=== PATIENT | male | born 1960 | race Two or more races ===

== ENCOUNTER 2022-06-18 19:36 | Inpatient (IN) | payer OTHER ==
[~2022-06-18] VITALS: Ht 152.4 cm; Wt 63.5 kg
--- NOTE | 2022-06-18 20:13 | NUR ---
[facility]sey FROM [facility] FOR [facility]. LAST WELL KNOWN 1699. PATIENT ON MONITOR AND POX, IN BED 11 WITH SITTER AT BEDSIDE AWAITING MD WOOD.
--- NOTE | 2022-06-18 20:24 | NUR ---
BLOOD AND CULTURES COLLECTED AND SENT TO LAB
--- NOTE | 2022-06-18 20:24 | NUR ---
PATIENT GOING TO CT
[2022-06-18 20:35] LABS: BASOPHILS % (AUTO) 0.1 % (0.0-2.0); EOSINOPHILS % (AUTO) 0.1 % (0.0-6.0); HEMATOCRIT 34 % (39-51); HEMOGLOBIN 11.8 g/dL (13.5-17.5); LYMPHOCYTES # (AUTO) 1.1 K/uL (0.8-4.8); LYMPHOCYTES % (AUTO) 7.7 % (20.0-44.0); MEAN CORPUSCULAR HGB CONC 34 g/dl (31.0-36.0); MEAN CORPUSCULAR VOLUME 89 fL (80-96); MONOCYTES # (AUTO) 0.6 K/uL (0.1-1.30); MONOCYTES % (AUTO) 4.2 % (2.0-12.0); NEUTROPHILS # (AUTO) 12.5 K/uL (1.8-8.9); NEUTROPHILS % (AUTO) 87.9 % (43.0-81.0); PLATELET COUNT (AUTO) 329 K/uL (150-450); RED BLOOD CELL COUNT(AUTO) 3.88 MIL/uL (4.5-6.0); WHITE BLOOD COUNT (AUTO) 14.2 K/uL (4.3-11.0)
--- NOTE | 2022-06-18 20:41 | NUR ---
URINE COLLECTED AND SENT TO LAB
--- NOTE | 2022-06-18 20:43 | NUR ---
COVID SWAB COLLECTED
[2022-06-18 20:49] LABS: SERUM AMMONIA 54 umol/L (11-32)
[2022-06-18 20:54] LABS: ALANINE AMINOTRANSFERASE 43 U/L (12-78); ALBUMIN 3.7 g/dL (3.4-5.0); ALCOHOL, BLOOD < 3 mg/dL (0-0); ALKALINE PHOSPHATASE 154 U/L (46-116); ASPARTATE AMINOTRANSFERASE 58 U/L (15-37); BILIRUBIN,DIRECT 0.4 mg/dL (0.0-0.2); BILIRUBIN,TOTAL 1.2 mg/dL (0.2-1.0); CALCIUM, SERUM 8.6 mg/dL (8.5-10.1); CARBON DIOXIDE 17 mmol/L (21-32); CREATININE 1.1 mg/dL (0.6-1.3); GLUCOSE 162 mg/dL (74-106); POTASSIUM 3.9 mmol/L (3.5-5.1); TOTAL PROTEIN, SERUM 9.1 g/dL (6.4-8.2); UREA NITROGEN, BLOOD 11 mg/dL (7-18)
--- NOTE | 2022-06-18 20:55 | NUR ---
CALL FROM LAB. SODIUM 106
[2022-06-18 20:57] LABS: CHLORIDE 72 mmol/L (98-107); SODIUM SERUM 106 mmol/L (136-145)
[2022-06-18] MEDS ORDERED: LORAZEPAM INJ 2 MG/ML VIAL ONE (20:58)
[2022-06-18] MEDS ORDERED: SODIUM BICARBONATE SYR 50 MEQ/50 ML DISP.SYRIN ONE (20:58)
--- NOTE | 2022-06-18 20:59 | NUR ---
PT HAD WITNESSED SEIZURE LASTING APPROX. 1 1/2 MIN. 2 ATIVAN GIVEN. PT ON NON REBREATHER @15L O2 CONNECTED TO MONITOR. SEIZURE PRECAUTIONS IN PLACE. VITAL SIGNS: HR:108 BP: 152/91 RR: 23 O2 SAT 99% 15L
[2022-06-18] MEDS ORDERED: SODIUM BICARBONATE SYR 50 MEQ/50 ML DISP.SYRIN IV ONE (21:00)
[2022-06-18] MEDS ORDERED: IV Sodium Chloride 3% 500 ML 500 ML IV ONE ×2 (21:00→21:05)
--- NOTE | 2022-06-18 21:04 | NUR ---
ICU 261
--- NOTE | 2022-06-18 21:12 | NUR ---
3%NS 150ML INITIATED AT 450ML/HR AT 20G LH. END TIME 2131.
--- NOTE | 2022-06-18 21:22 | NUR ---
SECOND IV LINE ESTABLISHED, LHAND 20G
[2022-06-18] MEDS ORDERED: ONDANSETRON HCL/PF 4 MG/2 ML VIAL IVP PRN (21:30)
[2022-06-18] MEDS ORDERED: ACETAMINOPHEN 325 MG TABLET PO PRN (21:30)
[2022-06-18] MEDS ORDERED: LORAZEPAM INJ 2 MG/ML VIAL IV ONE (21:30)
[2022-06-18] MEDS ORDERED: Z GUARD REMEDY 4 OZ OINT TP PRN (21:30)
[2022-06-18] MEDS ORDERED: MORPHINE SULFATE INJ 2 MG/ML DISP.SYRIN IV PRN (21:30)
--- NOTE | 2022-06-18 21:33 | NUR ---
3%NS 150ML VIA IV MD KAEL MADE AWARE
[2022-06-18 21:45] LABS: BILIRUBIN,URINE NEGATIVE (NEGATIVE); COLOR,URINE YELLOW (YELLOW); LEUKOCYTE ESTERASE ,URINE NEGATIVE (NEGATIVE); NITRITE, URINE NEGATIVE (NEGATIVE); PROTEIN,URINE NEGATIVE (NEGATIVE); UGLUCOSE NEGATIVE (NEGATIVE); UROBILINOGEN,URINE 0.2 EU/dL (0.2)
--- NOTE | 2022-06-18 21:51 | NUR ---
REPORT GIVEN TO LORENA HAYES FOR JOHANNY
[2022-06-18] MEDS ORDERED: DEXTROSE 50%-WATER 50 ML DISP.SYRIN IV PRN (22:00)
[2022-06-18] MEDS ORDERED: LORAZEPAM INJ 2 MG/ML VIAL IV PRN (22:00)
[2022-06-18] MEDS ORDERED: ACET-2605 PO (22:02)
[2022-06-18] MEDS ORDERED: ENOX40DI SQ (22:02)
[2022-06-18] MEDS ORDERED: BISA-79 GT (22:02)
[2022-06-18] MEDS ORDERED: SENN1TAB6 PO (22:02)
[2022-06-18] MEDS ORDERED: OLAN5TAB3 PO (22:02)
[2022-06-18] MEDS ORDERED: THIA25PO MC (22:02)
[2022-06-18] MEDS ORDERED: DOCU-141 PO (22:02)
--- NOTE | 2022-06-18 22:03 | NUR ---
LAB AT BEDSIDE
[2022-06-18 22:16] LABS: BACTERIA,URINE Rare /HPF (None Seen); SQUAMOUS EPITHELIAL CELL,UR Few /HPF (None Seen); WBC,URINE 0-2 /HPF (0-3)
[2022-06-18] MEDS ORDERED: LEVETIRACETAM (500MG) 500 MG/5 ML VIAL IV ONE (22:17)
--- NOTE | 2022-06-18 22:28 | NUR ---
DR KRUEGER AT BEDSIDE
[2022-06-18] MEDS ORDERED: IV NS 0.9% 250 ML IV PRN (22:30)
--- NOTE | 2022-06-18 22:39 | NUR ---
RT AT BEDSIDE
--- NOTE | 2022-06-18 22:44 | NUR ---
LACTIC ACID 7.9
--- NOTE | 2022-06-18 22:48 | NUR ---
TROP 543, AWARE
[2022-06-18 22:50] LABS: ABG BASE EXCESS -4.5 mmol/L; ABG PCO2 29.2 mmHg (35.0-45.0); ABG PH 7.425 (7.350-7.450); ABG PO2 373.7 mmHg (75.0-100.0); COHb 0.3 % (0.5-1.5); MetHb 0.3 % (0.0-1.5); O2Hb 99.2 % (94.0-97.0); SITE, ABG Left Radial; VENT MODE, BG NRB 100%
[2022-06-18] MEDS ORDERED: IV NS 0.9% 1,000 ML BAG IV ONE (23:00)
[2022-06-18] MEDS: LEVETIRACETAM (500MG) 500 MG in IV NS 0.9% 100 ML IV SCH (23:29)
--- NOTE | 2022-06-18 23:30 | NUR ---
ICU/RN: RECIEVED PT. BED BATH GIVEN. LINENS CHANGED. ATTACHED TO MONITOR. NSR. PT NOTED WITH AUDIBLE WHEEZING ON 5L NC. RR 40'S. DR. SMITH NOTIFIED. NEW ORDERS RECIEVED AND CARRIED OUT. PATRICK CATH PLACE VIA STERILE PROCEDURE. 1100ML CLEAR YELLOW URINE RETURNED. PT NOTED WITH SKIN TEAR TO RIGHT HAND PICTURE TAKEN AND PLACED IN CHART. WOUND CONSULT TRIGGERED. PT NOTED WITH LEFT HAND IV #20 GAGUE AND LEFT FOREARM 20 GAUGE FLUSHED AND PATENT. SEIZURE PRECAUTIONS IMPLIMENTED. DR. SMITH NOTIFIED ABOUT CRITICAL SODIUM LEVEL 111. PER DR. SMITH CALL ALL SODIUM LEVELS TO DR. WOLFE [facility]. CONTACTING DR. WOLFE NOW. WILL CONTINUE WITH PLAN OF CARE.
[2022-06-18 23:37] VITALS: BP 106/22
[2022-06-18 23:51] VITALS: BP 106/22
[2022-06-19] VITALS (30 sets, daily range): BP systolic 80–122; BP diastolic 23–96
[2022-06-19] MEDS ORDERED: ALBUTEROL FS 2.5 MG/0.5 ML VIAL.NEB NEB PRN
[2022-06-19] MEDS ORDERED: IPRATROPIUM/ALBUTEROL INHALER IH SCH
[2022-06-19] MEDS: BLOOD SUGAR DIAGNOSTIC 1 EACH STRIP IN SCH ×5 (00:03→21:11)
[2022-06-19] MEDS: IPRATROPIUM NEB FS 0.5 MG/2.5 ML AMPUL.NEB NEB SCH ×7 (00:10→23:23)
[2022-06-19] MEDS: ALBUTEROL FS 2.5 MG/0.5 ML VIAL.NEB NEB SCH ×7 (00:30→23:23)
[2022-06-19] MEDS ORDERED: PIPERACILLIN /TAZOBACTAM 3.375 G VIAL IV ONE ×2 (00:33→06:09)
[2022-06-19] MEDS: ZOSYN IVPB 3.375 G in IV D5W 50ml IV SCH ×2 (00:34→06:11)
--- NOTE | 2022-06-19 00:50 | NUR ---
ICU/RN: PER DR. YANETH CANAS'S ANSWERING SERVICE HE IS UNAVAILABLE AND THEY WILL SEND A TEXT FOR HIM TO CALL ME BACK.
--- NOTE | 2022-06-19 01:00 | NUR ---
ICU/RN: SPOKE WITH DR. WOLFE NEW ORDERS RECIEVED AND CARRIED OUT.
[2022-06-19] MEDS: IV NS 0.9% 1,000 ML IV PRN ×2 (01:20→10:51)
[2022-06-19] MEDS ORDERED: IPRATROPIUM NEB FS 0.5 MG/2.5 ML AMPUL.NEB IH SCH (01:30)
[2022-06-19] MEDS ORDERED: ALBUTEROL FS 2.5 MG/0.5 ML VIAL.NEB NEB SCH (01:30)
[2022-06-19 04:22] LABS: BASOPHILS % (AUTO) 0.1 % (0.0-2.0); EOSINOPHILS % (AUTO) 0.2 % (0.0-6.0); HEMATOCRIT 31 % (39-51); HEMOGLOBIN 10.9 g/dL (13.5-17.5); LYMPHOCYTES % (AUTO) 18.3 % (20.0-44.0); MEAN CORPUSCULAR HGB CONC 35 g/dl (31.0-36.0); MEAN CORPUSCULAR VOLUME 89 fL (80-96); MONOCYTES % (AUTO) 8.9 % (2.0-12.0); NEUTROPHILS % (AUTO) 72.5 % (43.0-81.0); PLATELET COUNT (AUTO) 192 K/uL (150-450); RED BLOOD CELL COUNT(AUTO) 3.48 MIL/uL (4.5-6.0); WHITE BLOOD COUNT (AUTO) 8.2 K/uL (4.3-11.0)
[2022-06-19 04:23] LABS: LYMPHOCYTES # (AUTO) 1.5 K/uL (0.8-4.8); MONOCYTES # (AUTO) 0.7 K/uL (0.1-1.30)
[2022-06-19 04:43] LABS: ALBUMIN 3.1 g/dL (3.4-5.0); BILIRUBIN,TOTAL 1.1 mg/dL (0.2-1.0); CALCIUM, SERUM 8.2 mg/dL (8.5-10.1); CREATININE 0.9 mg/dL (0.6-1.3); MAGNESIUM 2.3 mg/dL (1.8-2.4); PHOSPHORUS 3.3 mg/dL (2.5-4.9); POTASSIUM 3.4 mmol/L (3.5-5.1); SERUM AMMONIA 11 umol/L (11-32); TOTAL PROTEIN, SERUM 7.9 g/dL (6.4-8.2)
--- NOTE | 2022-06-19 05:45 | NUR ---
ICU/RN: DR. SMITH NOTIFIED OF CRITICAL TROP 1058. NEW ORDERS FOR HEPARIN DRIP FOR ACS WITH BOLUS. WILL CONTINUE PLAN OF CARE.
--- NOTE | 2022-06-19 06:00 | NUR ---
ICU/RN: DR. WOLFE MADE AWARE OF LATEST SODIUM LEVEL 118
[2022-06-19] MEDS: HEPARIN SODIUM, PORCINE 5000 UNITS/1 ML VIAL IV ONE ×2 (06:19→07:12)
[2022-06-19] MEDS: HEPARIN INFUSION/D5W 500 ML IV PRN (07:13)
--- NOTE | 2022-06-19 07:19 | NUR ---
ICU/RN: HEPARIN GTT FOR ACS STARTED PER PROTOCOL. 930UNITS/HR.
--- NOTE | 2022-06-19 07:51 | NUR ---
WOUND CARE CONSULT: PT HAVING PROCEDURES AT THIS TIME IN ICU. WILL SEE PT PT CONDITION PERMITS. DISCUSSED SKIN PROTECTION WITH NURSING STAFF. IN AGREEMENT WITH PLAN OF CARE.
--- NOTE | 2022-06-19 08:00 | NUR ---
RECEIVED REPORT FROM RN. PATIENT IN STABLE CONDITION. WILL CONTINUE PLAN OF CARE AND ANTICIPATE NEEDS
[2022-06-19] MEDS: LEVETIRACETAM (500MG) 500 MG in IV NS 0.9% 100 ML IV SCH ×2 (08:42→20:38)
[2022-06-19] MEDS ORDERED: HEPARIN SODIUM, PORCINE 5000 UNITS/1 ML VIAL SQ SCH (09:00)
[2022-06-19] MEDS ORDERED: BISA10SU11 RC (09:25)
[2022-06-19] MEDS ORDERED: NA P133E RC (09:25)
[2022-06-19] MEDS ORDERED: THIA100T88 PO (09:25)
[2022-06-19] MEDS ORDERED: MAGN400O6 PO (09:25)
[2022-06-19] MEDS ORDERED: ACET-868 PO (09:25)
--- NOTE | 2022-06-19 10:00 | NUR ---
HANDOFF REPORT GIVEN TO FREDDY ROMERO.
--- NOTE | 2022-06-19 10:38 | NUR ---
PT RECEIVED IN STABLE CONDITION BREATHING EVEN AND UNLABORED NO OUTWARD SIGNS OF DISTRESS OF ANY KIND. PT IS CALM AND RESTING RESPONDS IS ABLE TO RESPOND TO HIS NAME A/O 2X. LEFT FOREARM WAS PULLED OUT, BEGAN TO BLEED AND WAS D/C. MORNING TROPONIN FROM 0325 CAME BACK ELEVATED AT 1058 AWARE HEPARIN PROTOCOL INITIATED. PT ALSO PRESENTED WITH HYPONATREMIA AND WAS BOLUSED 3% NS IN THE ER Na TRENDING UP TOWARD NORMAL LEVELS. ECHO STUDIES SCHEDULED FOR THE DAY TO INSPECT THE HEART AND ABDOMINAL AREAS. APTT ORDER IN FOR 1330. PATRICK CATHETER IN PLACE AND DRAINING CLEAR YELLOW URINE. RESTREAINTS IN PLACE BILATERALLY CIRCULATION CHECKED.
[2022-06-19] MEDS ORDERED: DESMOPRESSIN 4 MCG/ML AMPUL SQ ONE (11:00)
[2022-06-19] MEDS: POTASSIUM CL. PREMIX PERIPHER. 50 ML IV SCH ×2 (11:21→12:36)
--- NOTE | 2022-06-19 11:45 | NUR ---
construction services technician at bed side attempting to make pt cooperate, pt remain fidgety and moving.
--- NOTE | 2022-06-19 12:24 | NUR ---
turkey cleaner at bed side at bed side
--- NOTE | 2022-06-19 12:25 | NUR ---
ultrasounds tech at bedside
[2022-06-19] MEDS: IV 1/2NS 1000 ML 1,000 ML IV SCH ×3 (13:53→23:03)
[2022-06-19] MEDS: PIPERACILLIN /TAZOBACTAM 3.375 G in IV D5W 100 ML IV SCH ×2 (14:15→21:31)
[2022-06-19] MEDS: ASPIRIN EC 81 MG TABLET.DR PO SCH (17:00)
--- NOTE | 2022-06-19 19:19 | NUR ---
PT A/O 2X ABLE TO FOLLOW COMMANDS IS CALM AND COOPERATIVE. RESPIRATIONS ARE EVEN AND UNLABORED NO S/S OF RESPIRATORY DISTRESS ON 3L NC SAT 97%. BEDSIDE MONITOR SHOW VITAL WNL. 20G ON LEFT HAND PATENT AND .45% NS RUNNING @200ML/H, 0.9%NS FLUIDS. NO S/S OF INFILTRATION. ON HEPARIN DRIP @930U/H aPTT 53 @12:30 ORDER FOR REPEAT aPTT FOR TMW @13:30. BED IS LOCKED BED ALARM IS ON.
--- NOTE | 2022-06-19 19:30 | NUR ---
RN OPENING NOTE REPORT RECEIVED FROM FREDDY HERRERA FOR JOHANNY. PT IN BED, SLEEPING, WITH NO S/SX OF ACUTE RESPIRATORY DISTRESS NOTED AT THIS TIME. CURRENTLY ON O2 THERAPY VIA NC AT 3L. BREATHING IS EVEN AND UNLABORED. O2 SAT IS 99%, SR ON TELE MONITOR, HR 99. IV ACCESS NOTED ON L HAND, #20g. PATENT AND INTACT. INFUSING .45% NS @ 200 CC/HR AND HEPARIN DRIP @ 930 UNITS/HR. SOFT WRIST RESTRAINTS NOTED ON BILATERAL HANDS. NO CIRCULATION ISSUES SO FAR. FC NOTED, DRAINING YELLOW URINE BY GRAVITY. PT ON SEIZURE PRECAUTIONS, PADS NOTED ON SIDE RAILS. ALL SAFETY MEASURES IN PLACE: BED LOCKED IN LOWEST POSITION, BED ALARM ON. CALL LIGHT WITHIN REACH, SR UP X3. WILL CONTINUE TO MONITOR.
[2022-06-19] MEDS ORDERED: ACETAMINOPHEN 650 MG/SUPP.RECT RC PRN (20:30)
--- NOTE | 2022-06-19 20:50 | NUR ---
RN NOTE PT HAS A FEVER AT 101.2 OTHER VS WNL. NO RESPIRATORY DISTRESS UPON ASSESSMENT. PT IS ALERT AND VERBALLY RESPONSIVE, GAVE TYLENOL VIA RECTUM ORDERED. WILL REASSESS IN 30 MINUTES.
[2022-06-19] MEDS: INSULIN REGULAR, HUMAN 100 UNIT/ML 3 ML VIAL SQ PRN (21:12)
[2022-06-20] VITALS (25 sets, daily range): BP systolic 82–142; BP diastolic 35–109
[2022-06-20] MEDS: ALBUTEROL FS 2.5 MG/0.5 ML VIAL.NEB NEB SCH ×5 (03:32→19:52)
[2022-06-20] MEDS: IPRATROPIUM NEB FS 0.5 MG/2.5 ML AMPUL.NEB NEB SCH ×5 (03:32→19:52)
[2022-06-20] MEDS: IV 1/2NS 1000 ML 1,000 ML IV SCH ×2 (04:00→09:46)
[2022-06-20 04:26] LABS: BASOPHILS % (AUTO) 0.5 % (0.0-2.0); EOSINOPHILS % (AUTO) 3.7 % (0.0-6.0); HEMATOCRIT 27 % (39-51); HEMOGLOBIN 9.4 g/dL (13.5-17.5); LYMPHOCYTES % (AUTO) 16.1 % (20.0-44.0); MEAN CORPUSCULAR HGB CONC 34 g/dl (31.0-36.0); MEAN CORPUSCULAR VOLUME 92 fL (80-96); MONOCYTES # (AUTO) 0.4 K/uL (0.1-1.30); MONOCYTES % (AUTO) 5.7 % (2.0-12.0); NEUTROPHILS # (AUTO) 4.6 K/uL (1.8-8.9); PLATELET COUNT (AUTO) 133 K/uL (150-450); RED BLOOD CELL COUNT(AUTO) 2.97 MIL/uL (4.5-6.0); WHITE BLOOD COUNT (AUTO) 6.3 K/uL (4.3-11.0)
[2022-06-20 04:52] LABS: CALCIUM, SERUM 7.3 mg/dL (8.5-10.1); CREATININE 1.2 mg/dL (0.6-1.3); MAGNESIUM 2.1 mg/dL (1.8-2.4)
[2022-06-20 05:03] LABS: POTASSIUM 2.8 mmol/L (3.5-5.1)
[2022-06-20] MEDS: PIPERACILLIN /TAZOBACTAM 3.375 G in IV D5W 100 ML IV SCH ×3 (05:13→21:50)
[2022-06-20 05:26] LABS: ABG BASE EXCESS -7.4 mmol/L; ABG OXYGEN SATURATION 98.2 % (92.0-98.5); ABG PCO2 27.6 mmHg (35.0-45.0); ABG PH 7.391 (7.350-7.450); ABG PO2 114.4 mmHg (75.0-100.0); AaDO2 81.5 mmHg; COHb 0.4 % (0.5-1.5); MetHb 0.3 % (0.0-1.5); O2Hb 97.5 % (94.0-97.0); SITE, ABG Right Radial; VENT MODE, BG Nasal Cannula
--- NOTE | 2022-06-20 05:44 | NUR ---
RN NOTE PT'S PTT OF LATEST IS 66.3. NO CHANGE IN DOSE PER PROTOCOL.
--- NOTE | 2022-06-20 07:02 | NUR ---
RN NOTE RECEIVED CRITICAL LAB FOR POTASSIUM: 2.8 MD NOTIFIED.
[2022-06-20] MEDS: HEPARIN INFUSION/D5W 500 ML IV PRN (07:39)
--- NOTE | 2022-06-20 08:16 | NUR ---
WOUND CARE CONSULT: PT PRESENTS WITH RT HAND DRY ABRASION AND SACRAL SCAR, PRESENT ON ADMISSION. PT IS INDEPENDENT WITH BED MOBILITY AT THIS TIME AND IS CONTINENT. WILL SEE PRN.
[2022-06-20] MEDS: POTASSIUM CL. PREMIX PERIPHER. 50 ML IV SCH ×10 (08:18→22:32)
[2022-06-20] MEDS: BLOOD SUGAR DIAGNOSTIC 1 EACH STRIP IN SCH ×4 (08:18→22:04)
[2022-06-20] MEDS: LEVETIRACETAM (500MG) 500 MG in IV NS 0.9% 100 ML IV SCH ×2 (09:46→21:50)
[2022-06-20] MEDS: ASPIRIN EC 81 MG TABLET.DR PO SCH (10:00)
[2022-06-20] MEDS: METOPROLOL TARTRATE 25 MG TABLET PO SCH ×2 (12:53→21:51)
[2022-06-20] MEDS: Potassium Chloride 20 MEQ in IV NS 0.9% 1,000 ML IV SCH ×2 (14:18→22:06)
[2022-06-20] MEDS ORDERED: IOHEXOL-350 100 ML VIAL IV ONE (15:08)
[2022-06-20] MEDS ORDERED: CT SWABBABLE VALVE TRANS SET 1 EA INFUS.SET MC ONE (15:08)
[2022-06-20] MEDS ORDERED: NITROGLYCERIN 0.4 MG/TAB BOTTLE ONE (15:08)
[2022-06-20] MEDS ORDERED: METOPROLOL TARTRATE INJ 5 MG/5 ML AMPUL ONE ×3 (15:08→15:47)
[2022-06-20 16:53] LABS: BILIRUBIN,URINE NEGATIVE (NEGATIVE); COLOR,URINE YELLOW (YELLOW); LEUKOCYTE ESTERASE ,URINE TRACE (NEGATIVE); NITRITE, URINE NEGATIVE (NEGATIVE); PROTEIN,URINE NEGATIVE (NEGATIVE); UGLUCOSE NEGATIVE (NEGATIVE); UROBILINOGEN,URINE 0.2 EU/dL (0.2)
[2022-06-20 17:19] LABS: BACTERIA,URINE None seen /HPF (None Seen); RBC,URINE 81-100 /HPF (0-2); SQUAMOUS EPITHELIAL CELL,UR 0-2 /HPF (None Seen)
--- NOTE | 2022-06-20 18:32 | NUR ---
RN/ICU CLOSING PT RESTING IN BED ON BILATERAL SOFT RESTRAINS ABUSABLE IF PROMPTED A/O 3x. CONTINUES ON HEPARIN THERAPY aPTT TO BE RECHECKED AT 11:30. NO S/S OF BLEEDING. PT CONTINUES TO PRODUCE HIGH VOLUMES OF URINE DR. GERDA MACIEL. PT TAKEN TO CT AWATING RESULTS. DIET WAS CHANGED TO PUREE FROM LIQUID, TOLERATING WELL.
--- NOTE | 2022-06-20 20:30 | NUR ---
ICU/BIODIESEL PRODUCTION ASSOCIATE NA FROM LAB IS 134
[2022-06-21] VITALS (17 sets, daily range): BP systolic 93–151; BP diastolic 26–97
[2022-06-21] MEDS: IPRATROPIUM NEB FS 0.5 MG/2.5 ML AMPUL.NEB NEB SCH ×7 (00:10→23:33)
[2022-06-21] MEDS: ALBUTEROL FS 2.5 MG/0.5 ML VIAL.NEB NEB SCH ×7 (00:10→23:33)
[2022-06-21 04:16] LABS: BASOPHILS % (AUTO) 0.7 % (0.0-2.0); EOSINOPHILS % (AUTO) 8.9 % (0.0-6.0); HEMATOCRIT 30 % (39-51); HEMOGLOBIN 10.1 g/dL (13.5-17.5); LYMPHOCYTES # (AUTO) 1.1 K/uL (0.8-4.8); LYMPHOCYTES % (AUTO) 21.4 % (20.0-44.0); MEAN CORPUSCULAR HGB CONC 34 g/dl (31.0-36.0); MEAN CORPUSCULAR VOLUME 92 fL (80-96); MONOCYTES # (AUTO) 0.5 K/uL (0.1-1.30); MONOCYTES % (AUTO) 9.9 % (2.0-12.0); NEUTROPHILS # (AUTO) 3.1 K/uL (1.8-8.9); NEUTROPHILS % (AUTO) 59.1 % (43.0-81.0); PLATELET COUNT (AUTO) 171 K/uL (150-450); RED BLOOD CELL COUNT(AUTO) 3.21 MIL/uL (4.5-6.0); WHITE BLOOD COUNT (AUTO) 5.3 K/uL (4.3-11.0)
[2022-06-21 04:36] LABS: CALCIUM, SERUM 8.4 mg/dL (8.5-10.1); PHOSPHORUS 2.7 mg/dL (2.5-4.9); POTASSIUM 4.1 mmol/L (3.5-5.1)
[2022-06-21] MEDS: PIPERACILLIN /TAZOBACTAM 3.375 G in IV D5W 100 ML IV SCH ×3 (05:25→21:24)
[2022-06-21] MEDS: Potassium Chloride 20 MEQ in IV NS 0.9% 1,000 ML IV SCH (05:25)
[2022-06-21] MEDS: BLOOD SUGAR DIAGNOSTIC 1 EACH STRIP IN SCH ×4 (06:23→21:33)
--- NOTE | 2022-06-21 07:15 | NUR ---
FLIGHT OPERATIONS DISPATCH CLERK OPENING NOTES: RECEIVED PT IN BED, AWAKE, WITH NO S/SX OF ACUTE RESPIRATORY DISTRESS NOTED AT THIS TIME.ON ROOM AIR BREATHING IS EVEN AND UNLABORED. O2 SAT IS 96%, SR ON TELE MONITOR, . IV ACCESS NOTED ON L HAND, #20g. PATENT AND INTACT. INFUSING .HEPARIN DRIP @ 930 UNITS/HR.AND NS WITH 20 mEq KCL AT 125 CC/HR. SOFT WRIST RESTRAINTS NOTED ON BILATERAL HANDS. NO CIRCULATION ISSUES SO FAR. FC NOTED, DRAINING YELLOW URINE BY GRAVITY. PT ON SEIZURE PRECAUTIONS, PADS NOTED ON SIDE RAILS.ALL SAFETY MEASURES IN PLACE: BED LOCKED IN LOWEST POSITION, BED ALARM ON. CALL LIGHT WITHIN REACH, SR UP X3. WILL CONTINUE TO MONITOR.
--- NOTE | 2022-06-21 07:55 | NUR ---
RN notes: pt ate 100% of his puree breakfast. released the restraint and monitor pt closely
[2022-06-21] MEDS: ASPIRIN EC 81 MG TABLET.DR PO SCH (09:27)
[2022-06-21] MEDS: LEVETIRACETAM SOL (5 ML) 100 MG/ML UDC PO SCH ×2 (09:27→21:30)
[2022-06-21] MEDS: METOPROLOL TARTRATE 25 MG TABLET PO SCH ×2 (09:27→21:26)
--- NOTE | 2022-06-21 09:58 | NUR ---
RN NOTES: SEEN BY DR RICHARDS ASSISTED SALES REPRESENTATIVE WIT ORDER TO DISCONTINUE HEPARIN DRIP
--- NOTE | 2022-06-21 16:45 | NUR ---
RN NOTES: TRANSFERRED PT TO TELE UNIT VIA WHEELCHAIR IN STABLE CONDITION
--- NOTE | 2022-06-21 18:30 | NUR ---
RN NOTES: PT PULLED OUT MIDLINE, TRIED TO PULL OUT HIS PATRICK CATHETER, REMOVED HIS TELE MONITOR , APPLIED THE RESTRAINT WILL MONITOR CLOSELY
--- NOTE | 2022-06-21 19:25 | NUR ---
RN NOTES RECEIVED PT FOR CONTINUITY OF CARE. PATIENT A/OX3-4 IN NO S/SX OF ACUTE DISTRESS AT THIS TIME; CURRENTLY ON ROOM AIR ; WITH 02 SAT >95% AT THIS TIME.WITH IV ACCESS L HAND#20 PATENT, INTACT AND FLUSHING WELL. WITH BILATERAL SOFT RESTRAINTS IN PLACED, MONITORED AND ASSESSED PER PROTOCOL. WILL ENSURE SAFETY MEASURES WITHIN THE SHIFT. PATIENT BED ALARM IS ON. HEAD OF BED ELEVATED. BED IS LOCKED, IN LOWEST POSITION AND SIDE RAILS UP. CALL LIGHT WITHIN REACH OF THE PATIENT. WILL CONTINUE TO MONITOR AND REASSESS FOR ANY CHANGES AND WILL CARRY OUT ANY ONGOING AND ACTIVE MD ORDER.
--- NOTE | 2022-06-21 19:35 | NUR ---
PROSPECTING DRILLER HELPER CLOSING NOTES: PT RESTING IN BED ON BILATERAL SOFT RESTRAINS AROUSABLE IF PROMPTED A/O 3x. NO BLEEDING OR BRUISES POST HEPARIN DRIP STOPPED, DENIED CHEST PAIN OR DISCOMFORT.FC PATENT DRAINING A LARGE AMOUNT OF URINE, DR PARRA AWARE..WILL CONTINUE TO MONITOR
[2022-06-21] MEDS ORDERED: CEPHALEXIN MONOHYDRATE 500 MG CAPSULE PO SCH (21:00)
[2022-06-21] MEDS: INSULIN REGULAR, HUMAN 100 UNIT/ML 3 ML VIAL SQ PRN (21:33)
[2022-06-22] VITALS: BP 151/91
[2022-06-22] MEDS: ALBUTEROL FS 2.5 MG/0.5 ML VIAL.NEB NEB SCH ×4 (03:36→15:30)
[2022-06-22] MEDS: IPRATROPIUM NEB FS 0.5 MG/2.5 ML AMPUL.NEB NEB SCH ×4 (03:36→15:30)
[2022-06-22 04:00] VITALS: BP 133/93
--- NOTE | 2022-06-22 04:00 | NUR ---
RN NOTES PATIENT REMAINED TO BE IN NO SIGNS OF ACUTE RESPIRATORY DISTRESS , SAFE ENVIRONMENT MAINTAINED FOR PT. AM PATIENT CARE ASSISTANCE RENDERED. WILL CONTINUE TO MONITOR AND REASSESS FOR ANY CHANGES THROUGHOUT THE SHIFT.
[2022-06-22] MEDS: PIPERACILLIN /TAZOBACTAM 3.375 G in IV D5W 100 ML IV SCH ×2 (05:11→14:43)
[2022-06-22 06:45] LABS: BASOPHILS % (AUTO) 0.8 % (0.0-2.0); EOSINOPHILS % (AUTO) 9.1 % (0.0-6.0); HEMATOCRIT 31 % (39-51); HEMOGLOBIN 10.7 g/dL (13.5-17.5); LYMPHOCYTES # (AUTO) 1.4 K/uL (0.8-4.8); LYMPHOCYTES % (AUTO) 27.6 % (20.0-44.0); MEAN CORPUSCULAR HGB CONC 35 g/dl (31.0-36.0); MEAN CORPUSCULAR VOLUME 92 fL (80-96); MONOCYTES # (AUTO) 0.5 K/uL (0.1-1.30); MONOCYTES % (AUTO) 9.9 % (2.0-12.0); NEUTROPHILS # (AUTO) 2.7 K/uL (1.8-8.9); NEUTROPHILS % (AUTO) 52.6 % (43.0-81.0); PLATELET COUNT (AUTO) 201 K/uL (150-450); RED BLOOD CELL COUNT(AUTO) 3.37 MIL/uL (4.5-6.0); WHITE BLOOD COUNT (AUTO) 5.2 K/uL (4.3-11.0)
[2022-06-22 07:06] LABS: CALCIUM, SERUM 8.8 mg/dL (8.5-10.1); CREATININE 1.2 mg/dL (0.6-1.3); MAGNESIUM 1.9 mg/dL (1.8-2.4); PHOSPHORUS 4.9 mg/dL (2.5-4.9); POTASSIUM 3.8 mmol/L (3.5-5.1)
--- NOTE | 2022-06-22 07:18 | NUR ---
RN CLOSING NOTE: PATIENT REMAINS IN ROOM IN NO SIGNS OF RESPIRATORY DISTRESS, PATIENT STILL ON ROOM AIR;TOLERATING WELL SATURATING @ >95% SP02. SAFETY MEASURES IMPLEMENTED, BED IN LOWEST POSITION, LOCKED, SIDE RAILS UP, CALL LIGHT WITHIN REACH. ALL NEEDS AND ORDERS ADDRESSED DURING THE SHIFT. IV ACCESS MAINTAINED INTACT, SECURED AND FLUSHING WELL. ALL DUE MEDS GIVEN ORDERED & SCHEDULED ; PATIENT TOLERATED WELL. PATIENT KEPT CLEAN AND COMFORTABLE WITHIN THE SHIFT. PATIENT ENDORSED TO INCOMING SHIFT RN WITH STABLE VITAL SIGN AND FOR CONTINUITY OF CARE.
--- NOTE | 2022-06-22 07:50 | NUR ---
RN CLOSING NOTE: PATIENT REMAINS IN ROOM IN NO SIGNS OF RESPIRATORY DISTRESS, PATIENT STILL ON ROOM AIR;TOLERATING WELL SATURATING @ >95% SP02. SAFETY MEASURES IMPLEMENTED, BED IN LOWEST POSITION, LOCKED, SIDE RAILS UP, CALL LIGHT WITHIN REACH. IV ACCESS MAINTAINED INTACT, SECURED AND FLUSHING WELL. PATIENT TOLERATED WELL. WILL CONTINUE TO MONITOR Addendum: 06/22/22 at 1444 by GIUSEPPE MERRILL RN RN OPEN NOTE PATIENT REMAINS IN ROOM IN NO SIGNS OF RESPIRATORY DISTRESS, PATIENT STILL ON ROOM AIR;TOLERATING WELL SATURATING @ >95% SP02. SAFETY MEASURES IMPLEMENTED, BED IN LOWEST POSITION, LOCKED, SIDE RAILS UP, CALL LIGHT WITHIN REACH. IV ACCESS MAINTAINED INTACT, SECURED AND FLUSHING WELL. PATIENT TOLERATED WELL. WILL CONTINUE TO MONITOR
[2022-06-22] MEDS: BLOOD SUGAR DIAGNOSTIC 1 EACH STRIP IN SCH ×2 (07:52→12:02)
[2022-06-22 08:00] VITALS: BP_SYST 126; BP_SYST 145; BP_DIAS 71; BP_DIAS 94
--- NOTE | 2022-06-22 08:00 | NUR ---
PT RECEIVED ON RA. STABLE AND NO DISTRESS IS NOTED. BILAT BREATH SOUNDS AND CHEST RISE OBSERVED. WILL CONTINUE CURRENT TREATMENT.
[2022-06-22] MEDS: ASPIRIN EC 81 MG TABLET.DR PO SCH (09:01)
[2022-06-22] MEDS: METOPROLOL TARTRATE 25 MG TABLET PO SCH (09:02)
[2022-06-22] MEDS: LEVETIRACETAM SOL (5 ML) 100 MG/ML UDC PO SCH (09:02)
[2022-06-22 12:00] VITALS: BP 124/88
[2022-06-22] MEDS ORDERED: CEPH500T PO (12:17)
[2022-06-22] MEDS ORDERED: LEVE100S PO (12:17)
[2022-06-22] MEDS ORDERED: METO25TA20 PO (12:17)
[2022-06-22] MEDS ORDERED: Aspirin Ec PO (12:17)
[2022-06-22 12:24] VITALS: BP 124/88
--- NOTE | 2022-06-22 14:45 | NUR ---
pATIENT IS AT STABLE HEALTH CONDITION . VS -WNL. ORDER TO DISCHARGE PATIENT FROM [facility] RECIEVED . [place]ERITTEN AND VERBAL DISCHARGE INSTRUCTIONS PROVIDED TO THE PATIENTS AND [facility] .
== END 2022-06-22 17:16 | DRG 426 ==
LOC: ER 19:40 → ICU 21:54 → TELE1 06-21 16:08
PROVIDERS: ADMIT Internal Medicine; ATTEND Registered Nurse
PROC: 05HB33Z Insertion of Infusion Device into Right Basilic Vein, Percutaneous Approach (ICD-10-PCS; principal; 2022-06-20)
DX: E23.2 Diabetes insipidus (principal); G92.8 Other toxic encephalopathy; I21.A1 Myocardial infarction type 2; J18.9 Pneumonia, unspecified organism; G40.409 Other generalized epilepsy and epileptic syndromes, not intractable, without status epilepticus; D63.8 Anemia in other chronic diseases classified elsewhere; K72.90 Hepatic failure, unspecified without coma; E11.22 Type 2 diabetes mellitus with diabetic chronic kidney disease; F03.90 Unspecified dementia, unspecified severity, without behavioral disturbance, psychotic disturbance, mood disturbance, and anxiety; N39.0 Urinary tract infection, site not specified; I12.9 Hypertensive chronic kidney disease with stage 1 through stage 4 chronic kidney disease, or unspecified chronic kidney disease; K74.60 Unspecified cirrhosis of liver; N18.9 Chronic kidney disease, unspecified; Z20.822 Contact with and (suspected) exposure to COVID-19; F20.9 Schizophrenia, unspecified; E11.65 Type 2 diabetes mellitus with hyperglycemia; R74.01 Elevation of levels of liver transaminase levels; J98.11 Atelectasis; R09.02 Hypoxemia; B96.89 Other specified bacterial agents as the cause of diseases classified elsewhere; G31.9 Degenerative disease of nervous system, unspecified
CPT/HCPCS: 36415; 36600; 70450-TC; 71045-TC; 75574; 76700-TC; 80048-TC; 80053-TC; 80076-TC; 81001; 82140-TC; 82533; 82803-TC; 82962-TC; 83605-TC; 83735-TC; 84100-TC; 84295-TC; 84300-TC; 84443-TC; 84484-TC; 85025-TC; 85610-TC; 85730-TC; 87081-TC; 87086-TC; 93307-TC; 94799-TC; 95819-TC; G0378; G0480; J1644; J1815; J1953; J2060; J2543; J2597; J3480; J3490; J7030; J7050; J7060; Q9967